=== PATIENT | male | born 1945 | race Caucasian/White ===

== ENCOUNTER → 2020-10-04 | Outpatient (CLI) | payer OTHER ==
[~2020-10-04] MED LIST: ALEVE220 M1 PO; DECADRON4 MG PO; DRONABINOL5 MG PO; ELIQUIS 5 MG TAB5 MG PO; FOLIC ACID1 MG PO; GLUCOPHAGE 500500 MG PO; HYDROCODON-ACE473 ML PO; JANUVIA 100 MG100 MG PO; LEVOFLOXACIN750 MG PO; MELOXICAM7.5 MG PO; MUCINEX600 MG PO; NEXIUM20 MG PO; PANTOPRAZOLE SO40 MG PO; PREDNISONE20 MG PO; PRILOSEC OTC20 MG PO; TYLENOL325 MG PO; VITAMIN B12 PO; ZESTRIL5 MG PO; ZOCOR 40 MG TAB40 MG GT; ZOCOR40 MG PO
== END ==
LOC: CT 13:37
DX: R06.02 Shortness of breath (principal); J91.0 Malignant pleural effusion; R06.2 Wheezing; R05 Cough; R91.8 Other nonspecific abnormal finding of lung field
CPT/HCPCS: 71250

== ENCOUNTER → 2020-11-01 | Outpatient (CLI) | payer OTHER ==
[2020-11-01 10:26] LABS: HEMOGLOBIN 13.9 gm/dl (14.0-17.5); RED BLOOD COUNT 4.85 M/UL (4.20-5.50); WHITE BLOOD COUNT 19.7 K/UL (4.5-11.0)
[2020-11-01 10:42] LABS: BUN/CREATININE RATIO 23 (0-10)
== END ==
LOC: LAB 09:42
PROVIDERS: Internal Medicine Hematology & Oncology
DX: C34.11 Malignant neoplasm of upper lobe, right bronchus or lung (principal); C77.1 Secondary and unspecified malignant neoplasm of intrathoracic lymph nodes; Z87.891 Personal history of nicotine dependence; R13.19 Other dysphagia
CPT/HCPCS: 36415; 80053; 83615; 85025

== ENCOUNTER → 2021-01-30 | Outpatient (CLI) | payer MEDICARE, OTHER ==
[2021-01-30 14:55] LABS: HEMOGLOBIN 13.8 gm/dl (14.0-17.5); RED BLOOD COUNT 4.51 M/UL (4.20-5.50); WHITE BLOOD COUNT 11.8 K/UL (4.5-11.0)
[2021-01-30 15:19] LABS: BUN/CREATININE RATIO 15 (0-10)
== END ==
LOC: CT 01-29 09:00
PROVIDERS: Internal Medicine Hematology & Oncology
DX: C34.11 Malignant neoplasm of upper lobe, right bronchus or lung (principal); C77.1 Secondary and unspecified malignant neoplasm of intrathoracic lymph nodes; R13.19 Other dysphagia; Z87.891 Personal history of nicotine dependence
CPT/HCPCS: 36415; 71260; 80053; 85025; 85379; Q9967

== ENCOUNTER → 2021-02-14 | Outpatient (CLI) | payer MEDICARE, OTHER | LOC: HEART 5 14:38 | DX: J44.9 Chronic obstructive pulmonary disease, unspecified (principal); Z87.891 Personal history of nicotine dependence | CPT/HCPCS: 94060; 94729 ==

== ENCOUNTER → 2021-04-30 | Outpatient (CLI) | payer MEDICARE, OTHER ==
[2021-04-30 09:43] LABS: HEMOGLOBIN 13.7 gm/dl (14.0-17.5); RED BLOOD COUNT 4.73 M/UL (4.20-5.50); WHITE BLOOD COUNT 13.5 K/UL (4.5-11.0)
== END ==
LOC: CT 09:16
PROVIDERS: Internal Medicine Hematology & Oncology
DX: C34.11 Malignant neoplasm of upper lobe, right bronchus or lung (principal); C77.1 Secondary and unspecified malignant neoplasm of intrathoracic lymph nodes; Z87.891 Personal history of nicotine dependence; R13.19 Other dysphagia; R91.8 Other nonspecific abnormal finding of lung field
CPT/HCPCS: 36415; 71260; 80053; 85027; 85379; Q9967

== ENCOUNTER → 2021-10-30 | Outpatient (CLI) | payer MEDICARE, OTHER ==
[2021-10-30 09:18] LABS: HEMOGLOBIN 13.2 gm/dl (14.0-17.5); RED BLOOD COUNT 5.15 M/UL (4.20-5.50); WHITE BLOOD COUNT 22.6 K/UL (4.5-11.0)
== END ==
LOC: CT 08:43
PROVIDERS: Internal Medicine Hematology & Oncology
DX: C34.11 Malignant neoplasm of upper lobe, right bronchus or lung (principal); C77.1 Secondary and unspecified malignant neoplasm of intrathoracic lymph nodes; Z87.891 Personal history of nicotine dependence; R13.19 Other dysphagia; R91.8 Other nonspecific abnormal finding of lung field; K76.9 Liver disease, unspecified
CPT/HCPCS: 36415; 71260; 80053; 85025; 85379; Q9967

== ENCOUNTER → 2021-11-13 | Outpatient (CLI) | payer MEDICARE, OTHER ==
[2021-11-13 13:19] LABS: HEMOGLOBIN 13.4 gm/dl (14.0-17.5); RED BLOOD COUNT 5.18 M/UL (4.20-5.50); WHITE BLOOD COUNT 22.7 K/UL (4.5-11.0)
[2021-11-13 13:53] LABS: BUN/CREATININE RATIO 15 (0-10)
== END ==
LOC: MRI 12:50
PROVIDERS: Internal Medicine Hematology & Oncology
DX: C34.11 Malignant neoplasm of upper lobe, right bronchus or lung (principal); C77.1 Secondary and unspecified malignant neoplasm of intrathoracic lymph nodes; R13.19 Other dysphagia; R90.82 White matter disease, unspecified; Z87.891 Personal history of nicotine dependence
CPT/HCPCS: 36415; 70553; 80053; 84439; 84443; 85025; A9577

== ENCOUNTER 2021-11-28 19:58 | Emergency (ER) | payer MEDICARE, OTHER ==
[2021-11-28 20:54] LABS: HEMOGLOBIN 13.1 gm/dl (14.0-17.5); RED BLOOD COUNT 5.05 M/UL (4.20-5.50); WHITE BLOOD COUNT 10.1 K/UL (4.5-11.0)
[2021-11-28] MEDS ORDERED: PHENERGAN 12.12.5 MG PR (21:50)
[2021-11-28] MEDS ORDERED: ZOFRAN 4 MG TAB4 MG PO (21:50)
== END 2021-11-28 22:40 | disposition home or self-care (01) ==
LOC: ER1 19:58
PROVIDERS: Physician Assistant
DX: E86.0 Dehydration (principal); R11.2 Nausea with vomiting, unspecified; E11.9 Type 2 diabetes mellitus without complications; I10 Essential (primary) hypertension; J44.9 Chronic obstructive pulmonary disease, unspecified; Z85.118 Personal history of other malignant neoplasm of bronchus and lung
CPT/HCPCS: 71045; 80053; 81001; 82550; 82553; 83690; 84484; 85025; 96374; 99284

== ENCOUNTER → 2021-12-18 | Outpatient (CLI) | payer MEDICARE, OTHER ==
[~2021-12-18] MED LIST changes: +PHENERGAN 12.12.5 MG PR; +ZOFRAN 4 MG TAB4 MG PO
== END ==
LOC: NM 11-29 08:10
DX: C34.11 Malignant neoplasm of upper lobe, right bronchus or lung (principal); C77.1 Secondary and unspecified malignant neoplasm of intrathoracic lymph nodes; Z87.891 Personal history of nicotine dependence; R13.19 Other dysphagia; R93.7 Abnormal findings on diagnostic imaging of other parts of musculoskeletal system
CPT/HCPCS: 78306; A9503

== ENCOUNTER → 2022-01-24 | Outpatient (CLI) | payer MEDICARE, OTHER ==
[2022-01-24 08:16] LABS: HEMOGLOBIN 13.4 gm/dl (14.0-17.5); RED BLOOD COUNT 4.99 M/UL (4.20-5.50); WHITE BLOOD COUNT 18.8 K/UL (4.5-11.0)
[2022-01-24 09:50] LABS: BUN/CREATININE RATIO 17 (0-10)
== END ==
LOC: CT 07:44
PROVIDERS: Internal Medicine Hematology & Oncology
DX: C34.11 Malignant neoplasm of upper lobe, right bronchus or lung (principal); C77.1 Secondary and unspecified malignant neoplasm of intrathoracic lymph nodes; R13.19 Other dysphagia; Z87.891 Personal history of nicotine dependence; R91.8 Other nonspecific abnormal finding of lung field
CPT/HCPCS: 36415; 71260; 80053; 84439; 84443; 85025; Q9967

== ENCOUNTER → 2022-03-27 | Outpatient (CLI) | payer MEDICARE, OTHER | LOC: CT 15:00 | DX: C34.11 Malignant neoplasm of upper lobe, right bronchus or lung (principal); C77.1 Secondary and unspecified malignant neoplasm of intrathoracic lymph nodes; R13.19 Other dysphagia; Z87.891 Personal history of nicotine dependence | CPT/HCPCS: Q9967 ==